=== PATIENT | male | born 1960 | race Asian ===

== ENCOUNTER → 2016-12-30 | Day surgery (SDC) | payer OTHER ==
[2016-12-29 08:46] LABS: BASOPHILS % (AUTO) 0.3 % (0.0-2.0); EOSINOPHILS % (AUTO) 2.2 % (1.0-6.0); HEMATOCRIT 45.7 % (41-53); HEMOGLOBIN 15.2 g/dL (13.5-17.5); LYMPHOCYTES # (AUTO) 1.6 K/uL (1.0-4.8); LYMPHOCYTES % (AUTO) 20.9 % (22.0-44.0); MEAN CORPUSCULAR HEMOGLOBIN 31.7 pg (26.0-34.0); MEAN CORPUSCULAR HGB CONC 33.3 G/dL (31.0-37.0); MEAN CORPUSCULAR VOLUME 95 fL (80-100); MONOCYTES # (AUTO) 0.6 K/uL (0.1-1.0); MONOCYTES % (AUTO) 8.2 % (2.0-9.0); NEUTROPHILS # (AUTO) 5.2 K/uL (1.8-7.7); NEUTROPHILS % (AUTO) 68.4 % (40.0-70.0); PLATELET COUNT (AUTO) 241 K/uL (150-450); WHITE BLOOD COUNT (AUTO) 7.6 K/uL (4.5-11.0)
[~2016-12-30] VITALS: Ht 170.2 cm; Wt 67.3 kg
[~2016-12-30] MED LIST: ACETAMINOPHEN 500 MG TABLET PO PRN; ALBUTEROL SULFATE HFA 90 MCG/PUFF 8 GM INHALER IH ONE; BUPIVACAINE HCL/PF 0.5% 30 ML VIAL ONE; CeFAZolin 2 GM/DEXTROSE 50 ML IV ONE; DEXAMETHASONE SOD PHOS 4 MG/ML VIAL IVP ONE; FentaNYL CITRATE-PF 100 MCG/2 ML VIAL IVP PRN; FentaNYL CITRATE-PF 250 MCG/5 ML VIAL IVP ONE; GLYCOPYRROLATE 0.2 MG/ML VIAL IM ONE; HYDROCODONE/ACETAMINOPHEN 5-325 MG TABLET PO PRN; HYDROmorphone 2 MG/ML SYRINGE IVP PRN; IBUPROFEN 600 MG TABLET PO PRN; KETAMINE HCL 50 MG/ML 10 ML VIAL IVP ONE; LIDOCAINE HCL 2%/EPI 1:200,000/PF 10 ML VIAL ONE; MEPERIDINE-PF 25 MG/ML SYRINGE IVP PRN; MIDAZOLAM HCL 2 MG/2 ML VIAL IVP ONE; ONDANSETRON HCL 4 MG/2 ML VIAL IVP ONE; OXYGEN THERAPY IH SCH; PROPOFOL 1% 20 ML VIAL IVP ONE; RINGERS SOLUTION,LACTATED 1,000 ML IV ONE; ROCURONIUM BROMIDE 10 MG/ML 5 ML VIAL IVP ONE; SODIUM CHLORIDE 0.9% 0 ML IV ONE; SUCCINYLCHOLINE CHLORIDE 20 MG/ML 10 ML VIAL IVP ONE
== END | disposition home or self-care (01) ==
LOC: SURGERY 12:30
PROVIDERS: ATTEND Surgery
DX: K40.90 Unilateral inguinal hernia, without obstruction or gangrene, not specified as recurrent (principal); F17.200 Nicotine dependence, unspecified, uncomplicated; Z72.89 Other problems related to lifestyle
CPT/HCPCS: 36415; 49650; 85025; 88302; 93005; C1716; C1781; J0330; J0690; J1100; J2250; J2405; J2704; J3010; J3490 ×5; J7120; J3535; J7030